=== PATIENT | female | born 1970 | race Caucasian/White ===

== ENCOUNTER → 2018-02-05 13:36 | Outpatient (CLI) | payer MEDICAID | END | disposition home or self-care (01) | LOC: D.CT 02-03 08:00 | DX: R93.8 Abnormal findings on diagnostic imaging of other specified body structures (principal) ==

== ENCOUNTER 2019-04-12 07:25 | Emergency (ER) | payer MEDICAID ==
[~2019-04-12] VITALS: Ht 160 cm; Wt 122.7 kg
[2019-04-12 07:32] VITALS: Ht 160 cm; Wt 122.7 kg
[2019-04-12] MEDS ORDERED: GABAPENTIN100 MG PO (07:34)
[2019-04-12] MEDS ORDERED: ATIVAN1 MG PO (07:34)
[2019-04-12] MEDS ORDERED: AXID150 MG PO (07:35)
[2019-04-12] MEDS ORDERED: VOLTAREN75 MG PO (07:47)
[2019-04-12 08:38] VITALS: BP 109/67
== END 2019-04-12 08:38 | disposition home or self-care (01) ==
LOC: D.ER 07:25
DX: S43.102A Unspecified dislocation of left acromioclavicular joint, initial encounter (principal); W18.31XA Fall on same level due to stepping on an object, initial encounter; Y93.89 Activity, other specified; Y92.019 Unspecified place in single-family (private) house as the place of occurrence of the external cause

== ENCOUNTER 2019-11-08 09:53 | Emergency (ER) | payer MEDICAID ==
[~2019-11-08] VITALS: Ht 160 cm; Wt 121.8 kg
[~2019-11-08 09:53] MED LIST: ATIVAN1 MG PO; AXID150 MG PO; GABAPENTIN100 MG PO; VOLTAREN75 MG PO
[2019-11-08 10:00] VITALS: Ht 160 cm; Wt 121.8 kg
[2019-11-08] MEDS ORDERED: AXID150 MG (10:04)
[2019-11-08] MEDS ORDERED: SYMBICORT 16010.2 GM (10:04)
[2019-11-08] MEDS ORDERED: PROVENTIL/2.5 MG/3 M (10:04)
[2019-11-08] MEDS ORDERED: MEDROL DOSE PACK4 MG PO (11:01)
[2019-11-08] MEDS ORDERED: ZPAK PO (11:01)
[2019-11-08] MEDS ORDERED: TESSALON PERLE100 MG PO (11:02)
[2019-11-08 11:06] VITALS: BP 120/64
== END 2019-11-08 11:12 | disposition home or self-care (01) ==
LOC: D.ER 09:53
DX: J40 Bronchitis, not specified as acute or chronic (principal); J32.9 Chronic sinusitis, unspecified; K21.9 Gastro-esophageal reflux disease without esophagitis